=== PATIENT | female | born 1970 | race American Indian/Alaskan Native ===

== ENCOUNTER 2017-11-14 13:45 | Inpatient (IN) | payer SELFPAY ==
[2017-11-14] MEDS ORDERED: ASPIRIN PO ONE (13:52)
[2017-11-14] MEDS ORDERED: CATAPRES PO ONE (14:01)
[2017-11-14 14:23] LABS: Basophils # (Auto) 0.1 K/mm3 (0.0-0.1); Basophils % (Auto) 0.8 % (0.0-1.8); Eosinophils # (Auto) 0.2 K/mm3 (0.0-0.4); Eosinophils % (Auto) 2.7 % (0.0-4.3); Hematocrit 39.2 % (30.3-42.9); Hemoglobin 12.2 gm/dl (10.1-14.3); Lymphocytes # (Auto) 2.2 K/mm3 (1.2-5.4); Lymphocytes % (Auto) 31.8 % (13.4-35.0); Mean Corpuscular HGB Conc 31 % (30-34); Mean Corpuscular Volume 72 fl (79-97); Monocytes # (Auto) 0.4 K/mm3 (0.0-0.8); Platelet Count 278 K/mm3 (140-440); Red Blood Count 5.46 M/mm3 (3.65-5.03); Red Cell Distribution Width 19.4 % (13.2-15.2)
[2017-11-14 14:25] LABS: Mean Corpuscular Hemoglobin 22 pg (28-32)
[2017-11-14 14:32] LABS: BUN/Creatinine Ratio 11; Blood Urea Nitrogen 11 mg/dL (7-17); Calcium 9.4 mg/dL (8.4-10.2); Hemolysis Index 45
[2017-11-14] MEDS ORDERED: NITRO-BID 2% TP ONE (16:36)
--- NOTE | 2017-11-14 16:36 | Emergency Department Report ---
ED Chest Pain HPI - General Chief Complaint: Chest Pain Stated Complaint: CP SOB Time Seen by Provider: 11/14/17 16:22 Source: patient Mode of arrival: Ambulatory Limitations: No Limitations - History of Present Illness Initial Comments: Patient is a 47-year-old [place] female who is presenting with chest pain for the last 5 days. Patient states as a heaviness sensation with shortness of breath. Patient states is worse with exertion and better with rest and nitroglycerin. Patient states she's used all of her old bottle of nitroglycerin this week. Patient states she had angioplasty and 2016 was not sure if she has any stents. Patient states she also has had some episodes of diaphoresis as well. Patient denies nausea vomiting diarrhea or cough at this time. MD Complaint: chest pain - Related Data Home Medications Medication Instructions Recorded Confirmed Last Taken Ranitidine HCl [Zantac 300 MG TAB] 150 mg PO BID 05/02/14 05/29/16 05/29/16 Hydrochlorothiazide [HCTZ] 25 mg PO DAILY 12/06/15 05/29/16 05/29/16 diphenhydrAMINE [Benadryl CAP] 25 mg PO Q6HR PRN 12/06/15 05/29/16 05/29/16 levETIRAcetam [Keppra TAB] 1,000 mg PO BID 12/06/15 05/29/16 05/29/16 Divalproex Sodium [Divalproex 250 mg PO BID 05/29/16 05/29/16 05/29/16 Sodium ER] Gabapentin [Neurontin] 300 mg PO Q8HR 05/29/16 05/29/16 05/29/16 HYDROcodone/APAP 5-325 [[place] 1 each PO Q6HR PRN 05/29/16 05/29/16 05/29/16 5-325 mg TAB] Multivit-Min36/Iron/Folic Acid 1 each PO DAILY 05/29/16 05/29/16 05/29/16 [Geritol Complete Tablet] Previous Rx's Medication Instructions Recorded Last Taken Type AtorvaSTATin [Lipitor] 20 mg PO QHS #30 tablet 06/03/16 Unknown Rx Clopidogrel [Plavix] 75 mg PO QDAY #30 tablet 06/03/16 Unknown Rx ISOSORBIDE MONOnitrate [Imdur ER] 30 mg PO QDAY #30 tablet 06/03/16 Unknown Rx Lisinopril [Zestril TAB] 10 mg PO QDAY #30 tablet 06/03/16 Unknown Rx Metoprolol [Lopressor TAB] 50 mg PO BID #60 tablet 06/03/16 Unknown Rx Nitroglycerin [Nitrostat] 0.4 mg SL Q5M PRN #30 tab 06/03/16 Unknown Rx Allergies Allergy/AdvReac Type Severity Reaction Status Date / Time No Known Allergies Allergy Verified 05/31/14 21:52 Heart Score - HEART Score History: Highly suspicious EKG: Non-specific Age: 45-65 Risk factors: > 3 risk factors or hx of atherosclerotic disease Troponin: < normal limit HEART Score: 6 ED Review of Systems ROS: Stated complaint: CP, SOB Other details as noted in HPI Constitutional: denies: chills, fever Eyes: denies: eye pain, eye discharge, vision change ENT: denies: ear pain, throat pain Respiratory: denies: cough, shortness of breath, wheezing Cardiovascular: chest pain, dyspnea on exertion. denies: palpitations, orthopnea Endocrine: no symptoms reported Gastrointestinal: denies: abdominal pain, nausea, diarrhea Genitourinary: denies: urgency, dysuria, discharge Musculoskeletal: denies: back pain, joint swelling, arthralgia Skin: denies: rash, lesions Neurological: denies: headache, weakness, paresthesias Psychiatric: denies: anxiety, depression Hematological/Lymphatic: denies: easy bleeding, easy bruising ED Past Medical Hx - Past Medical History Hx Hypertension: Yes Hx Congestive Heart Failure: No Hx Diabetes: No Hx Deep Vein Thrombosis: No Hx Renal Disease: No Hx Sickle Cell Disease: No Hx Seizures: Yes Hx Asthma: No Hx COPD: No Hx HIV: No Additional medical history: MS - Surgical History Hx Pacemaker: No Hx Internal Defibrillator: No Hx Breast Surgery: Yes (biopies) Additional Surgical History: 05/03/2014. myomectomy. 2 breast biopsies - Social History Smoking Status: Unknown if ever smoked Substance Use Type: None - Medications Home Medications: Home Medications Medication Instructions Recorded Confirmed Last Taken Type Ranitidine HCl [Zantac 300 MG TAB] 150 mg PO BID 05/02/14 05/29/16 05/29/16 History Hydrochlorothiazide [HCTZ] 25 mg PO DAILY 12/06/15 05/29/16 05/29/16 History diphenhydrAMINE [Benadryl CAP] 25 mg PO Q6HR PRN 12/06/15 05/29/16 05/29/16 History levETIRAcetam [Keppra TAB] 1,000 mg PO BID 12/06/15 05/29/16 05/29/16 History Divalproex Sodium [Divalproex 250 mg PO BID 05/29/16 05/29/16 05/29/16 History Sodium ER] Gabapentin [Neurontin] 300 mg PO Q8HR 05/29/16 05/29/16 05/29/16 History HYDROcodone/APAP 5-325 [[place] 1 each PO Q6HR PRN 05/29/16 05/29/16 05/29/16 History 5-325 mg TAB] Multivit-Min36/Iron/Folic Acid 1 each PO DAILY 05/29/16 05/29/16 05/29/16 History [Geritol Complete Tablet] AtorvaSTATin [Lipitor] 20 mg PO QHS #30 tablet 06/03/16 Unknown Rx Clopidogrel [Plavix] 75 mg PO QDAY #30 tablet 06/03/16 Unknown Rx ISOSORBIDE MONOnitrate [Imdur ER] 30 mg PO QDAY #30 tablet 06/03/16 Unknown Rx Lisinopril [Zestril TAB] 10 mg PO QDAY #30 tablet 06/03/16 Unknown Rx Metoprolol [Lopressor TAB] 50 mg PO BID #60 tablet 06/03/16 Unknown Rx Nitroglycerin [Nitrostat] 0.4 mg SL Q5M PRN #30 tab 06/03/16 Unknown Rx ED Physical Exam - General Limitations: No Limitations General appearance: alert, in no apparent distress - Head Head exam: Present: atraumatic, normocephalic - Eye Eye exam: Present: normal appearance - ENT ENT exam: Present: mucous membranes moist - Neck Neck exam: Present: normal inspection - Respiratory Respiratory exam: Present: normal lung sounds bilaterally. Absent: respiratory distress - Cardiovascular Cardiovascular Exam: Present: regular rate, normal rhythm. Absent: systolic murmur, diastolic murmur, rubs, gallop - GI/Abdominal GI/Abdominal exam: Present: soft, normal bowel sounds - Extremities Exam Extremities exam: Present: normal inspection - Back Exam Back exam: Present: normal inspection - Neurological Exam Neurological exam: Present: alert, oriented X3 - Psychiatric Psychiatric exam: Present: normal affect, normal mood - Skin Skin exam: Present: warm, dry, intact, normal color. Absent: rash ED Course Vital Signs 11/14/17 11/14/17 11/14/17 13:49 15:12 16:44 Temperature 97.6 F Pulse Rate 91 H Blood Pressure 214/129 153/96 Blood Pressure 166/103 [Left] O2 Sat by Pulse 100 Oximetry 11/14/17 11/14/17 11/14/17 16:45 16:47 16:48 Temperature Pulse Rate 70 72 71 Blood Pressure 157/94 Blood Pressure [Left] O2 Sat by Pulse 97 95 98 Oximetry 11/14/17 11/14/17 17:02 17:15 Temperature Pulse Rate 72 86 Blood Pressure 154/92 136/84 Blood Pressure [Left] O2 Sat by Pulse 100 Oximetry ROSALIND score - Rosalind Score Age > 65: (0) No Aspirin use within the Past 7 Days: (1) Yes 3 or more CAD Risk Factors: (1) Yes 2 or more Angina events in past 24 hrs: (1) Yes Known CAD with more than 50% Stenosis: (1) Yes Elevated Cardiac Markers: (0) No ST Deviation Greater than 0.5mm: (0) No ROSALIND Score: 4 ED Medical Decision Making - Lab Data Result diagrams: 11/14/17 13:57 11/14/17 13:57 - EKG Data -: EKG Interpreted by Me - EKG Data Interpretation: other (EKG shows sinus rhythm at a rate of 91 axes normal intervals and normal is no ST segment elevations or depressions there are Q waves present in V1 through V4 consistent with old anterior infarct, interpretation is 1353) - Radiology Data Radiology results: image reviewed interpreted by me: No acute process - Medical Decision Making Patient with unstable angina type symptoms patient will be admitted to Dr. Witt at this time we'll consult cardiology Critical Care Time: Yes Critical care time in (mins) excluding proc time.: 30 Critical care attestation.: If time is entered above; I have spent that time in minutes in the direct care of this critically ill patient, excluding procedure time. ED Disposition Clinical Impression: Unstable angina Disposition: OP ADMIT IP TO THIS HOSP Is pt being admited?: Yes Does the pt Need Aspirin: No Condition: Stable Instructions: Angina (ED) Referrals: BUD DOVER MD [Primary Care Provider] - 3-5 Days
--- NOTE | 2017-11-14 20:19 | XRay Report ---
FINAL REPORT PROCEDURE: XR CHEST ROUTINE 2V TECHNIQUE: PA and lateral chest radiographs were obtained. CPT 97861 HISTORY: cough COMPARISON: No prior studies are available for comparison. FINDINGS: Heart: There is mild cardiomegaly. Mediastinum/Vessels: Mild degree pulmonary venous congestion is noted. Lungs/Pleural space: Normal. Bony thorax: No acute osseous abnormality. Other: IMPRESSION: Mild cardiomegaly with mild pulmonary venous congestion.
--- NOTE | 2017-11-14 22:44 | Event Note ---
Date: 11/14/17 See dictated H/p in reports Unstable Angina HTN Seizure disorder CAD
[2017-11-14] MEDS ORDERED: PERCOCET 5/325 PO PRN (22:45)
[2017-11-14] MEDS ORDERED: MILK OF MAGNESIA PO PRN (22:45)
[2017-11-14] MEDS ORDERED: AMBIEN PO PRN (22:45)
[2017-11-14] MEDS ORDERED: DULCOLAX PR PRN (22:45)
[2017-11-14] MEDS ORDERED: ZOFRAN IV PRN (22:45)
[2017-11-14] MEDS ORDERED: TYLENOL PO PRN (22:45)
[2017-11-14] MEDS ORDERED: BENADRYL PO PRN (22:50)
[2017-11-14] MEDS ORDERED: NON-FORMULARY (Levetiracetam [Keppra Tab] 1,000 MG) PO SCH (23:00)
[2017-11-14] MEDS: MORPHINE IV PRN (23:02)
[2017-11-14] MEDS: LOPRESSOR PO SCH (23:58)
[2017-11-15] MEDS ORDERED: NEURONTIN ONE (00:03)
[2017-11-15] MEDS ORDERED: KEPPRA PO ONE (00:03)
[2017-11-15] MEDS ORDERED: PEPCID IV ONE (00:03)
[2017-11-15] MEDS: KEPPRA PO SCH ×3 (00:10→22:49)
[2017-11-15] MEDS: NEURONTIN PO SCH ×4 (00:11→22:50)
[2017-11-15] MEDS: PEPCID IV SCH ×3 (00:11→22:49)
[2017-11-15] MEDS: MORPHINE IV PRN (04:12)
[2017-11-15 05:02] LABS: Basophils # (Auto) 0.1 K/mm3 (0.0-0.1); Basophils % (Auto) 0.8 % (0.0-1.8); Eosinophils # (Auto) 0.2 K/mm3 (0.0-0.4); Eosinophils % (Auto) 2.4 % (0.0-4.3); Hematocrit 37.1 % (30.3-42.9); Hemoglobin 11.6 gm/dl (10.1-14.3); Lymphocytes # (Auto) 2.2 K/mm3 (1.2-5.4); Lymphocytes % (Auto) 33.5 % (13.4-35.0); Mean Corpuscular HGB Conc 31 % (30-34); Mean Corpuscular Volume 71 fl (79-97); Monocytes # (Auto) 0.4 K/mm3 (0.0-0.8); Monocytes % (Auto) 5.7 % (0.0-7.3); Platelet Count 258 K/mm3 (140-440); Red Blood Count 5.19 M/mm3 (3.65-5.03); Red Cell Distribution Width 18.9 % (13.2-15.2)
[2017-11-15 05:10] LABS: Mean Corpuscular Hemoglobin 22 pg (28-32)
[2017-11-15 05:28] LABS: Alanine Aminotransferase 9 units/L (7-56); Albumin 3.7 g/dL (3.9-5); BUN/Creatinine Ratio 12; Blood Urea Nitrogen 11 mg/dL (7-17); Calcium 9.1 mg/dL (8.4-10.2); Hemolysis Index 4
[2017-11-15] MEDS ORDERED: LEXISCAN IV ONE ×2 (08:15→08:22)
--- NOTE | 2017-11-15 09:18 | Progress Note ---
Assessment and Plan - Atypical chest pain possibly from acute coronary syndrome Continuous oxygen, nitroglycerin, aspirin, morphine, beta ira, statin. Set cardiac enzymes 3 negative. Stress thallium. - HTN Optimize blood pressure control lisinopril and beta blockers. - Seizure disorder Continue assessing her medications - CAD Continue with aspirin, metoprolol, lisinopril, atorvastatin. -Prophylaxis with Lovenox and GI prophylaxis with Pepcid Subjective Date of service: 11/15/17 Principal diagnosis: Chest pain Interval history: No more chest pain or shortness of breath Objective - Exam Narrative Exam: Constitutional: Well-nourished well-developed. In no distress Head: Normocephalic atraumatic Eyes: Pupils are equal round and reactive to light Nose: No enlarged turbinates, no septal deviation. Mouth: Moist mucous membranes. Neck: Supple no thyromegaly. No bruit. No JVD Heart: Regular rate and rhythm, S1-S2 abnormal. No rubs murmurs or gallop Lungs: Clear to auscultation bilaterally no rales or rhonchi Abdomen: Soft, nontender. Bowel sound are present. Extremities: No edema no cyanosis and no clubbing. Neuro: Alert oriented Oriented x3. No focal sensory or motor deficit. Skin: No rashes no hyperemic spots Psychiatry: Euthymic. Calm. - Constitutional Vitals: Vital Signs - 12hr 11/14/17 11/14/17 11/14/17 21:30 21:45 22:00 Temperature Pulse Rate 70 80 77 Pulse Rate [ Left Radial] Respiratory 18 17 12 Rate Respiratory Rate [Leg] Blood Pressure 141/82 136/84 133/83 Blood Pressure [Left] O2 Sat by Pulse Oximetry 11/14/17 11/14/17 11/14/17 22:15 22:30 22:45 Temperature Pulse Rate 81 78 78 Pulse Rate [ Left Radial] Respiratory 17 16 17 Rate Respiratory Rate [Leg] Blood Pressure 139/87 139/88 136/80 Blood Pressure [Left] O2 Sat by Pulse Oximetry 11/14/17 11/14/17 11/14/17 23:00 23:02 23:15 Temperature Pulse Rate 88 80 Pulse Rate [ Left Radial] Respiratory 14 18 16 Rate Respiratory Rate [Leg] Blood Pressure 131/74 132/75 Blood Pressure [Left] O2 Sat by Pulse Oximetry 11/14/17 11/14/17 11/14/17 23:30 23:51 23:58 Temperature Pulse Rate 81 85 83 Pulse Rate [ Left Radial] Respiratory 16 16 Rate Respiratory Rate [Leg] Blood Pressure 125/78 141/84 125/78 Blood Pressure [Left] O2 Sat by Pulse Oximetry 11/15/17 11/15/17 11/15/17 00:01 00:12 01:03 Temperature 97.6 F Pulse Rate 73 83 73 Pulse Rate [ Left Radial] Respiratory 18 15 Rate Respiratory Rate [Leg] Blood Pressure 145/87 Blood Pressure 145/87 [Left] O2 Sat by Pulse 98 Oximetry 11/15/17 11/15/17 11/15/17 01:12 03:09 03:41 Temperature Pulse Rate 71 Pulse Rate [ 75 Left Radial] Respiratory 18 Rate Respiratory 18 Rate [Leg] Blood Pressure Blood Pressure [Left] O2 Sat by Pulse Oximetry 11/15/17 11/15/17 11/15/17 04:12 04:42 05:02 Temperature 98.9 F Pulse Rate 73 Pulse Rate [ Left Radial] Respiratory 18 18 18 Rate Respiratory Rate [Leg] Blood Pressure Blood Pressure 133/72 [Left] O2 Sat by Pulse 100 Oximetry General appearance: Present: no acute distress, well-nourished - EENT Eyes: PERRL, EOM intact ENT: clear oral mucosa - Neck Neck: supple, normal ROM - Respiratory Respiratory effort: normal Respiratory: bilateral: CTA - Breasts Breasts: normal - Cardiovascular Rhythm: regular Heart Sounds: Present: S1 & S2. Absent: gallop, rub Extremities: pulses intact, No edema, normal color, Full ROM - Gastrointestinal General gastrointestinal: Present: soft, non-tender, non-distended, normal bowel sounds - Genitourinary Female genitourinary: normal - Integumentary Integumentary: clear, warm, dry - Musculoskeletal Musculoskeletal: 1, strength equal bilaterally - Neurologic Neurologic: moves all extremities - Psychiatric Psychiatric: memory intact, appropriate mood/affect, intact judgment & insight - Labs CBC & Chem 7: 11/15/17 04:23 11/15/17 04:23 Labs: Abnormal lab results 11/14/17 11/15/17 11/15/17 Range/Units 13:57 04:23 04:23 RBC 5.46 H 5.19 H (3.65-5.03) M/mm3 MCV 72 L 71 L (79-97) fl MCH 22 L 22 L (28-32) pg RDW 19.4 H 18.9 H (13.2-15.2) % Albumin 3.7 L (3.9-5) g/dL
[2017-11-15] MEDS: ZESTRIL PO SCH (12:26)
[2017-11-15] MEDS: PLAVIX PO SCH (12:27)
[2017-11-15] MEDS: IMDUR PO SCH (12:27)
[2017-11-15] MEDS: HCTZ PO SCH (12:28)
[2017-11-15] MEDS: LOVENOX SUB-Q SCH (12:28)
[2017-11-15] MEDS: NORCO 5/325 PO PRN (12:28)
[2017-11-15] MEDS: LOPRESSOR PO SCH ×2 (12:32→22:50)
[2017-11-15] MEDS: NITROSTAT SL PRN ×2 (12:32→21:02)
[2017-11-16] MEDS: NEURONTIN PO SCH ×3 (06:57→22:55)
--- NOTE | 2017-11-16 07:37 | Treadmill Report ---
THALLIUM STRESS TEST LEFT VENTRICLE: Left ventricular chamber size is within normal spread. Perfusion study demonstrates a small fixed inferoapical defect, no significant reversibility on the resting study. Gated analysis demonstrates normal left ventricular systolic function, ejection fraction of 50%. CONCLUSION: Small fixed inferoapical defect may represent breast attenuation artifact, cannot exclude a small prior inferior apical infarct. There is no reversible ischemia demonstrated on this study. Recommend clinical correlation. [facility]# [id number] [place]/NTS
[2017-11-16] MEDS: NITROSTAT SL PRN ×3 (10:41→10:51)
--- NOTE | 2017-11-16 11:57 | Progress Note ---
Assessment and Plan - Atypical chest pain possibly from acute coronary syndrome Continuous oxygen, nitroglycerin, aspirin, morphine, beta ira, statin. cardiac enzymes 3 negative. EKG was benign Stress thallium showed fixed defect. - HTN Optimize blood pressure control lisinopril and beta blockers. - Seizure disorder Continue assessing her medications - CAD Continue with aspirin, metoprolol, lisinopril, atorvastatin. -Prophylaxis with Lovenox and GI prophylaxis with Pepcid Disposition: Commence medical management and d/c home tomorrow Subjective Date of service: 11/16/17 Principal diagnosis: Chest pain Interval history: Still having chest pain. No more chest pain or shortness of breath Objective - Exam Narrative Exam: Constitutional: Well-nourished well-developed. In no distress Head: Normocephalic atraumatic Eyes: Pupils are equal round and reactive to light Nose: No enlarged turbinates, no septal deviation. Mouth: Moist mucous membranes. Neck: Supple no thyromegaly. No bruit. No JVD Heart: Regular rate and rhythm, S1-S2 abnormal. No rubs murmurs or gallop Lungs: Clear to auscultation bilaterally no rales or rhonchi Abdomen: Soft, nontender. Bowel sound are present. Extremities: No edema no cyanosis and no clubbing. Neuro: Alert oriented Oriented x3. No focal sensory or motor deficit. Skin: No rashes no hyperemic spots Psychiatry: Euthymic. Calm. - Constitutional Vitals: Vital Signs - 12hr 11/16/17 11/16/17 11/16/17 01:07 05:43 06:00 Temperature 97.7 F 98.1 F Pulse Rate 65 66 64 Respiratory 20 20 Rate Blood Pressure 113/62 124/78 O2 Sat by Pulse 100 99 Oximetry 11/16/17 11/16/17 11/16/17 10:41 10:46 10:51 Temperature Pulse Rate 67 67 69 Respiratory Rate Blood Pressure 128/79 137/85 117/80 O2 Sat by Pulse Oximetry - Labs CBC & Chem 7: 11/15/17 04:23 11/15/17 04:23
[2017-11-16] MEDS: IMDUR PO SCH (12:08)
[2017-11-16] MEDS: PLAVIX PO SCH (12:09)
[2017-11-16] MEDS: LOVENOX SUB-Q SCH (12:09)
[2017-11-16] MEDS: KEPPRA PO SCH ×2 (12:09→22:55)
[2017-11-16] MEDS: HCTZ PO SCH (12:10)
[2017-11-16] MEDS: ZESTRIL PO SCH (12:10)
[2017-11-16] MEDS: LOPRESSOR PO SCH ×2 (12:10→22:55)
[2017-11-16] MEDS: PEPCID PO SCH ×2 (12:23→22:55)
[2017-11-16] MEDS: NORCO 5/325 PO PRN (12:24)
--- NOTE | 2017-11-16 12:51 | Consultation ---
History of Present Illness Consult date: 11/16/17 Consult reason: chest pain History of present illness: The patient is a 47-year-old woman with coronary artery disease. A year and a half ago, she presented to this hospital with an acute ST elevation myocardial infarction of the inferior wall. Cardiac catheterization at a time demonstrated distal occlusion of the posterior descending branch of the right coronary artery. This small vessel occlusion was recommended for medical therapy. Otherwise, the rest of her coronary anatomy was angiographically normal. Left ventricular ejection fraction at that time was 35-40% by cardiac catheterization and 45-50% by echocardiogram. She presents to the hospital at this time with chest pain. She underwent a rule out CO protocol. The ECG was benign. Yesterday, she underwent a Persantine thallium stress test. This revealed a small fixed inferoapical defect with no reversible ischemia. This defect appears consistent with her prior inferoapical myocardial infarction which is managed medically. Past History Past Medical History: CAD Medications and Allergies Allergies Allergy/AdvReac Type Severity Reaction Status Date / Time No Known Allergies Allergy Verified 05/31/14 21:52 Home Medications Medication Instructions Recorded Confirmed Last Taken Type Ranitidine HCl [Zantac 300 MG TAB] 150 mg PO BID 05/02/14 05/29/16 05/29/16 History Hydrochlorothiazide [HCTZ] 25 mg PO DAILY 12/06/15 05/29/16 05/29/16 History diphenhydrAMINE [Benadryl CAP] 25 mg PO Q6HR PRN 12/06/15 05/29/16 05/29/16 History levETIRAcetam [Keppra TAB] 1,000 mg PO BID 12/06/15 05/29/16 05/29/16 History Divalproex Sodium [Divalproex 250 mg PO BID 05/29/16 05/29/16 05/29/16 History Sodium ER] Gabapentin [Neurontin] 300 mg PO Q8HR 05/29/16 05/29/16 05/29/16 History HYDROcodone/APAP 5-325 [[place] 1 each PO Q6HR PRN 05/29/16 05/29/16 05/29/16 History 5-325 mg TAB] Multivit-Min36/Iron/Folic Acid 1 each PO DAILY 05/29/16 05/29/16 05/29/16 History [Geritol Complete Tablet] AtorvaSTATin [Lipitor] 20 mg PO QHS #30 tablet 06/03/16 Unknown Rx Clopidogrel [Plavix] 75 mg PO QDAY #30 tablet 06/03/16 Unknown Rx ISOSORBIDE MONOnitrate [Imdur ER] 30 mg PO QDAY #30 tablet 06/03/16 Unknown Rx Lisinopril [Zestril TAB] 10 mg PO QDAY #30 tablet 06/03/16 Unknown Rx Metoprolol [Lopressor TAB] 50 mg PO BID #60 tablet 06/03/16 Unknown Rx Nitroglycerin [Nitrostat] 0.4 mg SL Q5M PRN #30 tab 06/03/16 Unknown Rx Active Meds: Active Medications Acetaminophen (Tylenol) 650 mg PO Q4H PRN PRN Reason: Pain MILD(1-3)/Fever >100.5/PERALTA Last Admin: 11/15/17 20:58 Dose: 650 mg Acetaminophen/Hydrocodone Bitart ([place] 5/325) 1 each PO Q6HR PRN PRN Reason: Pain Last Admin: 11/16/17 12:24 Dose: 1 each Atorvastatin Calcium (Lipitor) 20 mg PO QHS [facility] Last Admin: 11/15/17 22:49 Dose: 20 mg Bisacodyl (Dulcolax) 10 mg MD QDAY PRN PRN Reason: Constipation unrelieved by MOM Clopidogrel Bisulfate (Plavix) 75 mg PO QDAY [facility] Last Admin: 11/16/17 12:09 Dose: 75 mg Diphenhydramine HCl (Benadryl) 25 mg PO Q6HR PRN PRN Reason: Itching Divalproex Sodium (Depakote Er) 250 mg PO BID [facility] Last Admin: 11/15/17 22:50 Dose: 250 mg Enoxaparin Sodium (Lovenox) 40 mg SUB-Q QDAY [facility] Last Admin: 11/16/17 12:09 Dose: 40 mg Famotidine (Pepcid) 20 mg PO BID [facility] Last Admin: 11/16/17 12:23 Dose: 20 mg Gabapentin (Neurontin) 300 mg PO Q8HR [facility] Last Admin: 11/16/17 06:57 Dose: 300 mg Hydrochlorothiazide (Hctz) 25 mg PO DAILY [facility] Last Admin: 11/16/17 12:10 Dose: 25 mg Isosorbide Mononitrate (Imdur) 30 mg PO QDAY [facility] Last Admin: 11/16/17 12:08 Dose: 30 mg Levetiracetam (Keppra) 1,000 mg PO BID [facility] Last Admin: 11/16/17 12:09 Dose: 1,000 mg Lisinopril (Zestril) 10 mg PO QDAY [facility] Last Admin: 11/16/17 12:10 Dose: 10 mg Magnesium Hydroxide (Milk Of Magnesia) 30 ml PO Q4H PRN PRN Reason: Constipation Metoprolol Tartrate (Lopressor) 50 mg PO BID [facility] Last Admin: 11/16/17 12:10 Dose: 50 mg Morphine Sulfate (Morphine) 4 mg IV Q4H PRN PRN Reason: Pain , Severe (7-10) Last Admin: 11/15/17 04:12 Dose: 4 mg Nitroglycerin (Nitrostat) 0.4 mg SL Q5M PRN PRN Reason: Chest Pain Last Admin: 11/16/17 10:51 Dose: 0.4 mg Ondansetron HCl (Zofran) 4 mg IV Q8H PRN PRN Reason: N/V unrelieved by Reglan Oxycodone/Acetaminophen (Percocet 5/325) 1 tab PO Q6H PRN PRN Reason: Pain, Moderate (4-6) Zolpidem Tartrate (Ambien) 5 mg PO QHS PRN PRN Reason: Insomnia Review of Systems Cardiovascular: chest pain, shortness of breath, no orthopnea, no palpitations, no rapid/irregular heart beat, no edema, no syncope, no lightheadedness Physical Examination Vital Signs Temp Pulse BP Pulse Ox 97.6 F 91 H 214/129 100 11/14/17 13:49 11/14/17 13:49 11/14/17 13:49 11/14/17 13:49 General appearance: no acute distress HEENT: Positive: PERRL Neck: Positive: neck supple Cardiac: Positive: Reg Rate and Rhythm Lungs: Positive: Decreased Breath Sounds Neuro: Positive: Grossly Intact Abdomen: Positive: Soft Female genitourinary: deferred Skin: Positive: Clear Extremities: Absent: edema Results 11/15/17 04:23 11/15/17 04:23 EKG interpretations - Telemetry EKG Rhythm: Sinus Rhythm Assessment and Plan - Patient Problems (1) Chest pain Current Visit: Yes Status: Acute Plan to address problem: Patient has angina and chest pain, positive thallium stress test demonstrating a fixed defect stent without prior small vessel distal inferior CO. We will continue aggressive medical therapy for small vessel disease and angina pectoris. Long-acting nitrates and Ranexa will be added to her regimen.
[2017-11-16] MEDS ORDERED: IMDUR PO SCH (13:00)
[2017-11-16] MEDS: PEPCID IV SCH (13:42)
[2017-11-16] MEDS: RANEXA ER PO SCH ×2 (14:19→22:55)
[2017-11-16] MEDS ORDERED: IMDUR PO ONE (15:00)
[2017-11-17] MEDS: NEURONTIN PO SCH (06:50)
--- NOTE | 2017-11-17 08:15 | History and Physical Report ---
CHIEF COMPLAINT: Left-sided chest pain previous history of hypertension peripheral neuropathy, hyperlipidemia, hypertension, comes in for left-sided chest pain . Worse with exertion. Relieved by nitroglycerin. The patient apparently had CAT scan in 2015, but . Chest pain associated with diaphoresis sometimes. Occasional palpitations. No . No shortness of breath. . The pain is about 6 on a scale of 1-10. Dull pain. . PAST MEDICAL HISTORY: As mentioned . Peripheral vascular neuropathy, hypertension, coronary artery disease. CURRENT MEDICATIONS: . Home medications are Keppra 1000 mg b.i.d. , lisinopril 10 mg p.o. daily, metoprolol 50 mg p.o. b.i.d. PAST SURGICAL HISTORY: Breast biopsies. 2013 myomectomy. . SOCIAL HISTORY: Does not smoke. No alcohol, no recreational drugs. FAMILY HISTORY: . REVIEW OF SYSTEMS: Significant for left-sided chest pain and diaphoresis . No shortness of breath. No palpitations. Otherwise, a 14-point review of systems negative. PHYSICAL EXAMINATION: GENERAL: Middle-aged female, cooperative during examination. VITAL SIGNS: Blood pressure is 133/72, temperature is 98.9, pulse is 75, respiratory rate is 18. HEENT: Unremarkable. Pupils equal and reactive. NECK: Supple, no lymphadenopathy, no thyromegaly. LUNGS: Clear to auscultation and percussion. Good air entry. CARDIOVASCULAR: S1, S2 heard. No gallop, no murmur, no rub. Apical impulse in left fifth intercostal space in midclavicular line. ABDOMEN: Soft and benign. No hepatosplenomegaly, no guarding, no rigidity. Hernial orifices are normal. EXTREMITIES: Good pedal pulses. No pedal edema. CENTRAL NERVOUS SYSTEM: Alert and oriented x 4, nonfocal exam. SKIN: Normal. LABORATORY DATA: Significant for white count of 6800, hemoglobin of 12.2, hematocrit of 39.2, platelet count is 278,000. Electrolytes are normal. Troponin is less than 0.010. EKG shows sinus rhythm with a heart rate of 91, normal axis, no ST segment elevations or depressions. old anterior infarct. Chest x-ray: No acute process. ASSESSMENT AND PLAN: 1. Unstable angina, in view being precipitated by exertion and relieved with nitroglycerin . Cardiology consulted. Serial troponins. Lexiscan in the morning. The patient may go for cath depending on the Cardiology consult. 2. Hypertension. Continue hydrochlorothiazide and lisinopril. Isosorbide dinitrate and metoprolol 50 mg b.i.d. 3. Gastroesophageal reflux disease. Continue ranitidine 150 mg b.i.d. 4. Seizure disorder. Continue Keppra 1000 mg twice a day. Also, Depakote 250 mg twice a day. 5. Hyperlipidemia. Continue Lipitor 20 mg p.o. daily. 6. Coronary artery disease. Continue Plavix and Imdur. 7. Deep venous thrombosis prophylaxis, Lovenox. The patient on heparin drip. JOB# [id number] [facility]/NTS
[2017-11-17] MEDS ORDERED: IMDUR PO SCH (10:00)
[2017-11-17] MEDS: HCTZ PO SCH (10:55)
[2017-11-17] MEDS: LOVENOX SUB-Q SCH (10:56)
[2017-11-17] MEDS: LOPRESSOR PO SCH (10:56)
[2017-11-17] MEDS: KEPPRA PO SCH (10:56)
[2017-11-17] MEDS: RANEXA ER PO SCH (10:57)
[2017-11-17] MEDS: ZESTRIL PO SCH (10:57)
[2017-11-17] MEDS: PEPCID PO SCH (10:57)
[2017-11-17] MEDS: PLAVIX PO SCH (10:57)
[2017-11-17] MEDS: NORCO 5/325 PO PRN (11:08)
--- NOTE | 2017-11-17 12:23 | Progress Note ---
Assessment and Plan Chest pain no reversible ischemia on MPI this admission Hx of CAD [facility] 04/2016 demonstrated distal occlusion of the posterior descending branch of the right coronary artery. This small vessel occlusion was recommended for medical therapy. Otherwise, the rest of her coronary anatomy was angiographically normal. EF 45-50% by echocardiogram 05/2016. Tobacco abuse Recommendations: No further cardiac workup indicated. Continue medical therapy for small vessel coronary disease. Stable for discharge home today. Subjective Date of service: 11/17/17 Principal diagnosis: Chest pain Interval history: Patient complains of headaches and shortness of breath with minimal exertion. She denies chest pain. Objective Vital Signs Temp Pulse Resp Resp BP BP Pulse Ox 11/17/17 07:36 97.7 F 68 20 104/63 97 11/17/17 06:00 65 11/17/17 05:38 98.1 F 11/17/17 05:23 65 100 11/17/17 05:22 122.0 F H 64 20 99/64 100 11/17/17 01:45 97.8 F 68 17 136/75 100 11/17/17 00:26 68 136/75 100 11/16/17 22:55 68 113/67 11/16/17 22:00 67 20 98 11/16/17 20:39 97.9 F 68 20 113/67 96 11/16/17 17:50 97.7 F 67 16 111/66 100 11/16/17 14:16 64 122/69 11/16/17 13:24 20 11/16/17 12:24 20 20 - Physical Examination General: No Apparent Distress HEENT: Positive: PERRL Neck: Positive: trachea midline Cardiac: Positive: Reg Rate and Rhythm Lungs: Positive: Decreased Breath Sounds Neuro: Positive: Grossly Intact Extremities: Absent: edema
--- NOTE | 2017-11-17 13:37 | Discharge Summary ---
Providers - Providers Date of Admission: 11/14/17 22:45 Attending physician: WALTER VAN MD 11/14/17 22:45 Consult to Physician [CONS] Routine Consulting Provider: KARLA RIVERA Reason For Exam: Unstable angina Place consult to:: Lauri Notified:: yes Phone number called:: [phone] If yes, spoke with:: Lindsay Time called:: 15:05 Primary care physician: BUD DOVER Hospitalization Condition: Stable Hospital course: No driving till cleared by neurologist must quit tobacco MS seizure Disposition: DC-01 TO HOME OR SELFCARE Time spent for discharge: 35 mins Core Measure Documentation - Palliative Care Palliative Care/ Comfort Measures: Not Applicable - Core Measures Any of the following diagnoses?: none - VTE Discharge Requirements Deep Vein Thrombosis/Pulmonary Embolism Present on Admission: No Exam - Constitutional Vitals: Temp Pulse Resp BP Pulse Ox 97.7 F 69 20 104/63 97 11/17/17 07:36 11/17/17 12:46 11/17/17 07:36 11/17/17 07:36 11/17/17 07:36 Plan Activity: no driving until cleared by PCP, fall precautions Diet: low fat, low cholesterol Special Instructions: record daily weights, record daily BP diary, smoking cessation Follow up with: BUD DOVER MD [Primary Care Provider] - 3-5 Days [facility] [Outside] - 7 Days Prescriptions: AtorvaSTATin [Lipitor] 20 mg PO QHS #30 tablet Clopidogrel [Plavix] 75 mg PO QDAY #30 tablet diphenhydrAMINE [Benadryl CAP] 25 mg PO Q6HR PRN #10 capsule PRN Reason: Itching Divalproex Sodium [Divalproex Sodium ER] 250 mg PO BID #60 tab.er.24h Gabapentin [Neurontin] 300 mg PO Q8HR #60 capsule Hydrochlorothiazide [HCTZ] 25 mg PO DAILY #30 tablet ISOSORBIDE MONOnitrate [Imdur ER] 30 mg PO QDAY #30 tablet ISOSORBIDE MONOnitrate [Imdur ER] 60 mg PO QDAY #30 tablet levETIRAcetam [Keppra TAB] 1,000 mg PO BID #30 tablet Lisinopril [Zestril TAB] 10 mg PO QDAY #30 tablet Metoprolol [Lopressor TAB] 50 mg PO BID #60 tablet Nitroglycerin [Nitrostat] 0.4 mg SL Q5M PRN #30 tablet PRN Reason: Chest Pain Ranitidine HCl [Zantac 300 MG TAB] 150 mg PO BID #30 tablet Ranolazine ER [Ranexa ER] 500 mg PO BID #60 tablet
[2017-11-17 15:36] VITALS: BP 126/73
== END 2017-11-17 15:46 | disposition home or self-care (01) | DRG 303 ==
LOC: ED 13:45 → 4A 22:45
PROVIDERS: ADMIT Internal Medicine; ATTEND Internal Medicine
DX: I25.110 Atherosclerotic heart disease of native coronary artery with unstable angina pectoris (principal); I10 Essential (primary) hypertension; G62.9 Polyneuropathy, unspecified; K21.9 Gastro-esophageal reflux disease without esophagitis; G40.909 Epilepsy, unspecified, not intractable, without status epilepticus; E78.5 Hyperlipidemia, unspecified
CPT/HCPCS: 36415; 71046; 78452; 80048; 80053; 83036; 84484; 85025; 93005; 93010; 93017; 96374; 99291; A9270-GY; A9502; J1650; J2270; J2785

== ENCOUNTER 2018-06-15 11:28 | Inpatient (IN) | payer SELFPAY ==
[2018-06-15] MEDS ORDERED: ATIVAN ONE (11:53)
[2018-06-15] MEDS ORDERED: KEPPRA 1,000 MG/NS 0.75% 100ML 1,000 MG/100 ML BAG IV ONE (11:57)
--- NOTE | 2018-06-15 11:58 | Emergency Department Report ---
HPI - General Chief Complaint: Headache Time Seen by Provider: 06/15/18 11:52 - HPI HPI: 47-year-old after a red female presents to the emergency department, dropped off by her , with complaint of a very severe headache. Shortly after presentation the patient had a seizure and has had 3 total seizures since that time. She presents to the main emergency department from triage post ictal. She is arousable and does complain of a headache but otherwise is confused and having trouble answering questions. When she does talk it is very slow and slightly slurred. She is moving all extremities at this time. In reviewing the patient's chart and previous records, she appears to have a history of hypertension, seizures, multiple sclerosis and coronary artery disease with a previous [place] in 2016. Patient appears to be on Plavix for the coronary artery disease and Depakote and Keppra for the seizures. Currently she is a poor historian. ED Past Medical Hx - Past Medical History Hx Hypertension: Yes Hx Congestive Heart Failure: No Hx Diabetes: No Hx Deep Vein Thrombosis: No Hx Renal Disease: No Hx Sickle Cell Disease: No Hx Seizures: Yes Hx Asthma: No Hx COPD: No Hx HIV: No Additional medical history: MS - Surgical History Hx Pacemaker: No Hx Internal Defibrillator: No Hx Breast Surgery: Yes (biopies) Additional Surgical History: 05/03/2014. myomectomy. 2 breast biopsies - Social History Smoking Status: Never Smoker Substance Use Type: None - Medications Home Medications: Home Medications Medication Instructions Recorded Confirmed Last Taken Type AtorvaSTATin [Lipitor] 20 mg PO QHS #30 tablet 11/17/17 06/15/18 06/14/18 Rx Clopidogrel [Plavix] 75 mg PO QDAY #30 tablet 11/17/17 06/15/18 06/14/18 Rx Gabapentin [Neurontin] 300 mg PO Q8HR #60 capsule 11/17/17 06/15/18 Unknown Rx ISOSORBIDE MONOnitrate [Imdur ER] 60 mg PO QDAY #30 tablet 11/17/17 06/15/18 Rx Metoprolol [Lopressor TAB] 50 mg PO BID #60 tablet 11/17/17 06/15/18 06/14/18 Rx Nitroglycerin [Nitrostat] 0.4 mg SL Q5M PRN #30 tablet 11/17/17 06/15/18 Unknown Rx hydroCHLOROthiazide [HCTZ] 25 mg PO DAILY #30 tablet 11/17/17 06/15/18 06/14/18 Rx levETIRAcetam [Keppra TAB] 1,000 mg PO BID #30 tablet 11/17/17 06/15/18 Rx raNITIdine HCl [Zantac 300 MG TAB] 150 mg PO BID #30 tablet 11/17/17 06/15/18 Rx diphenhydrAMINE [Benadryl CAP] 25 mg PO Q8H 06/15/18 06/15/18 06/15/18 History ED Review of Systems ROS: Stated complaint: HEADACHE/NUMBNESS RT ARM Other details as noted in HPI Comment: Unobtainable due to pts medical conditions Physical Exam - Physical Exam Vital Signs: Vital Signs 06/15/18 11:34 Temperature 98.9 F Pulse Rate 78 Respiratory 16 Rate Blood Pressure 152/93 O2 Sat by Pulse 98 Oximetry Physical Exam: GENERAL: The patient is well-developed well-nourished. HENT: Normocephalic. Atraumatic. Patient has moist mucous membranes. Oropharynx is clear. Patient is able to stick out tongue midline. No facial asymmetry. EYES: Extraocular motions are intact. Pupils equal reactive to light bilaterally. NECK: Supple. Trachea is midline. CHEST/LUNGS: Clear to auscultation. There is no respiratory distress noted. HEART/CARDIOVASCULAR: Regular. There is no tachycardia. There is no murmur. ABDOMEN: Abdomen is soft, nontender. Patient has normal bowel sounds. There is no abdominal distention. SKIN: Skin is warm and dry. NEURO: Patient appears very sleepy and/or postictal but is arousable. When answering questions patient has some slow stuttering/slurring speech. No pronator drift. Withdraws to painful stimuli. MUSCULOSKELETAL: There is no tenderness or deformity. There is no limitation range of motion. There is no evidence of acute injury. ED Course Vital Signs 06/15/18 11:34 Temperature 98.9 F Pulse Rate 78 Respiratory 16 Rate Blood Pressure 152/93 O2 Sat by Pulse 98 Oximetry - Consultations Consultation #1: The CT scan of the head without contrast was read by radiology as no acute process including no bleed, shift, ischemia. The telemedicine neurologist, Dr. Kaye, was contacted who agrees with that assessment of the CT scan and is currently on the monitor tech seeing the patient for evaluation. 06/15/18 12:27 06/15/18 12:49 Dr. Kaye saw the patient and will leave a note on the chart. He says that he has the patient had a stroke scale of 1 but agrees that the patient is not a TPA candidate for multiple reasons. The has now come bedside and says that the patient has been complaining of the headache and some episodes where she is staring off for the past few days. The says that the patient will have intermittent slurred speech. On top of all that the patient has a history of a retroperitoneal bleed. The telemedicine neurologist does not recommend CT angiography imaging of the head or neck at this time but does recommend admission for evaluation by a neurologist. ED Medical Decision Making - Lab Data Result diagrams: 06/15/18 11:51 06/15/18 11:51 - EKG Data -: EKG Interpreted by La EKG shows normal: sinus rhythm, axis, intervals, QRS complexes (Q waves to the anterior leads and inferiorly lead III), ST-T waves Rate: normal - EKG Data When compared to previous EKG there are: no significant change Interpretation: unchanged when compared t (11/16/17) - Radiology Data Radiology results: report reviewed CT HEAD WITHOUT CONTRAST: HISTORY: Neurological deficit. TECHNIQUE: Sequential 2.5mm CT images. COMPARISON: none. FINDINGS: Cerebral Parenchyma: Within normal limits. Cerebellum: Within normal limits. Brainstem: Within normal limits. Ventricles: Normal. Sella: Normal. Extra-axial spaces: Normal. Basal Cisterns: Normal. Intracranial Hemorrhage: None. Midline Shift: None. Calvarium: Normal. Sinuses: Normal. Mastoid Air Cells: Normal. Visualized Orbits: Normal. IMPRESSION: Cranial CT scan within normal limits. These findings were discussed with Dr. Vital on the emergency Department at 1206 hrs. Transcribed By: TTR Dictated By: ANURAG PHELPS JR, MD Electronically Authenticated By: ANURAG PHELPS JR, MD Signed Date/Time: 06/15/18 1208 - Medical Decision Making This patient originally came in for a headache that had a few different witnessed seizures through triage prior to coming back to the main emergency department. There she appeared postictal and therefore the NIH stroke scale was difficult to do. At first she seemed like a stroke scale of 8 but I was unable to complete the entire test appropriately. She had a stat CT scan of the head that did not show any bleed, shift, mass or any other acute process. At this point, the patient's came back to the hospital and was able to give further information. The patient does have a history of multiple sclerosis. This headache has been going on for many days and seems to wax and wane. She has also had some intermittent staring spells and the stuttering/ slurring speech also is something that is intermittent but chronic for this patient. The patient was seen by the telemedicine neurologist who got a NIH stroke scale of 1 but also agrees that the patient does not appear to be a TPA candidate for multiple reasons previously explained. He does recommend that the patient get admitted to the hospital for a neurology consultation. The rest the patient's labs were mostly unremarkable except for she is subtherapeutic on her Depakote. The patient was loaded with Keppra. The patient was accepted for admission by the hospitalist, Dr. Lee, who says he will pursue a neurology consultation. - Differential Diagnosis TIA, CVA, epilepsy, multiple sclerosis, hypoglycemia Critical Care Time: No Critical care attestation.: If time is entered above; I have spent that time in minutes in the direct care of this critically ill patient, excluding procedure time. ED Disposition Clinical Impression: Multiple sclerosis, Seizures Headache Qualifiers: Headache type: unspecified Headache chronicity pattern: unspecified pattern Intractability: intractable Qualified Code(s): R51 - Headache Disposition: OP ADMIT IP TO THIS HOSP Is pt being admited?: Yes Condition: Stable Time of Disposition: 13:59 - Assessment Assessment Interval: Baseline (Patient is post-ictal upon arrival to the Main ED from triage) - Level of Consciousness 1a. Level of Consciousness: resp stimuli/obtunded - LOC Questions 1b. LOC Questions: answers no questions correctly - LOC Command 1c. LOC Commands: performs tasks correctly - Best Gaze 2. Best Gaze: normal - Visual 3. Visual: no visual loss - Facial Palsy 4. Facial Palsy: normal symmetrical movement - Motor Arm 5b. Motor Arm Right: no drift 5a. Motor Arm Left: no drift - Motor Leg 6a. Motor Leg Left: no drift 6b. Motor Leg Right: no drift - Limb Ataxia 7. Limb Ataxia: absent - Sensory 8. Sensory: normal - Best Language 9. Best Language: severe aphasia - Dysarthria 10. Dysarthria: severe dysarthria - Extinction and Inattention 11. Extinction/Inattention: no abnormality (This NIHSS has been done as the patient is post-ictal after three witnessed seizures and is a difficult examination.) - Scoring Total Score: 8 Stroke Severity: Moderate Stroke
--- NOTE | 2018-06-15 12:08 | Cat Scan Report ---
CT HEAD WITHOUT CONTRAST: HISTORY: Neurological deficit. TECHNIQUE: Sequential 2.5mm CT images. COMPARISON: none. FINDINGS: Cerebral Parenchyma: Within normal limits. Cerebellum: Within normal limits. Brainstem: Within normal limits. Ventricles: Normal. Sella: Normal. Extra-axial spaces: Normal. Basal Cisterns: Normal. Intracranial Hemorrhage: None. Midline Shift: None. Calvarium: Normal. Sinuses: Normal. Mastoid Air Cells: Normal. Visualized Orbits: Normal. IMPRESSION: Cranial CT scan within normal limits. These findings were discussed with Dr. Vital on the emergency Department at 1206 hrs.
[2018-06-15 12:17] LABS: Basophils # (Auto) 0.1 K/mm3 (0.0-0.1); Basophils % (Auto) 1.9 % (0.0-1.8); Eosinophils # (Auto) 0.3 K/mm3 (0.0-0.4); Eosinophils % (Auto) 3.7 % (0.0-4.3); Hematocrit 44.5 % (30.3-42.9); Hemoglobin 14.5 gm/dl (10.1-14.3); Lymphocytes # (Auto) 2.1 K/mm3 (1.2-5.4); Lymphocytes % (Auto) 29.7 % (13.4-35.0); Mean Corpuscular HGB Conc 33 % (30-34); Mean Corpuscular Volume 80 fl (79-97); Monocytes # (Auto) 0.3 K/mm3 (0.0-0.8); Monocytes % (Auto) 4.5 % (0.0-7.3); Platelet Count 289 K/mm3 (140-440); Red Blood Count 5.58 M/mm3 (3.65-5.03); Red Cell Distribution Width 17.8 % (13.2-15.2)
[2018-06-15 12:18] LABS: Mean Corpuscular Hemoglobin 26 pg (28-32)
[2018-06-15 12:28] LABS: INR 0.88 (0.87-1.13); Partial Thromboplastin Time 27.6 Sec. (24.2-36.6)
[2018-06-15 12:33] LABS: BUN/Creatinine Ratio 10; Blood Urea Nitrogen 12 mg/dL (7-17); Calcium 9.8 mg/dL (8.4-10.2); Hemolysis Index 40
[2018-06-15 12:58] LABS: Alanine Aminotransferase 16 units/L (7-56); Albumin 4.1 g/dL (3.9-5)
[2018-06-15 13:01] LABS: Bilirubin,Direct < 0.2 mg/dL (0-0.2)
[2018-06-15] MEDS ORDERED: TYLENOL PO ONE (13:35)
[2018-06-15 16:25] LABS: Bilirubin,Urine NEG (Negative); Blood,Urine NEG (Negative); Color,Urine Straw (Yellow); Protein,Urine <15 mg/dL mg/dL (Negative); Urobilinogen,Urine < 2.0 mg/dL (<2.0)
[2018-06-15 16:28] LABS: WBC,Urine < 1.0 /HPF (0.0-6.0)
[2018-06-15 16:41] LABS: Amphetamine Screen,Urine PRESUMPTIVE NEGATIVE; Benzodiazepines Screen,Urine PRESUMPTIVE NEGATIVE; Cannabinoid Screen,Urine PRESUMPTIVE NEGATIVE; Cocaine Screen,Urine PRESUMPTIVE NEGATIVE; Methadone Screen,Urine PRESUMPTIVE NEGATIVE; Opiate Screen,Urine PRESUMPTIVE NEGATIVE
[2018-06-15] MEDS: FIORICET PO PRN (17:30)
[2018-06-15] MEDS: MORPHINE IV PRN (22:33)
--- NOTE | 2018-06-16 02:47 | Event Note ---
Date: 06/15/18 Please see dictated H/p in reports Seizure disorder Headache Hx of Multiple sclerosis
[2018-06-16] MEDS ORDERED: TYLENOL PO PRN (02:52)
[2018-06-16] MEDS ORDERED: SODIUM CHLORIDE FLUSH SYRINGE 10 ML IV PRN (02:52)
[2018-06-16] MEDS ORDERED: RANITIDINE HCL 150 MG PO SCH (03:00)
--- NOTE | 2018-06-16 03:17 | History and Physical Report ---
CHIEF COMPLAINT: 1. Headache. 2. Seizures. HISTORY OF PRESENT ILLNESS: A 47-year-old black female who comes to the ER for severe headache. In the ER, the patient had 3 witnessed seizures. The patient was postictal during my examination. The patient is arousable, but does complain of headache and also has trouble answering questions. She has slightly slurred speech. Moving all four extremities. The patient has history of multiple sclerosis, hypertension, seizures, coronary artery disease, and had OR in 2016. PAST MEDICAL HISTORY: Significant for hypertension, seizure disorder, coronary artery disease, and multiple sclerosis. PAST SURGICAL HISTORY: Breast surgery, biopsies, in 2013, and myomectomy. SOCIAL HISTORY: Does not smoke. No alcohol. FAMILY HISTORY: Significant for hypertension. CURRENT MEDICATIONS: Keppra 1000 mg b.i.d., ranitidine 150 mg b.i.d., metoprolol 50 mg twice a day, isosorbide mononitrate 60 mg once a day, Plavix 75 mg once a day, Lipitor 20 mg once a day. REVIEW OF SYSTEMS: Significant for seizures, headache, and numbness in the right arm, postictal after seizures. Otherwise, review of systems negative. PHYSICAL EXAMINATION: GENERAL: A middle-aged female, cooperative during examination. VITAL SIGNS: Blood pressure is 126/91, temperature is 97.8, pulse is 65, and respirations are 18. HEENT: Unremarkable. Pupils equal and reactive. NECK: Supple, no lymphadenopathy, no thyromegaly. LUNGS: Clear to auscultation and percussion. Good air entry. CARDIOVASCULAR: S1, S2 heard. No gallop, no murmur, no rub. Apical impulse in the left fifth intercostal space and midclavicular line. ABDOMEN: Soft and benign. No hepatosplenomegaly. No guarding, no rigidity. Hernial orifices are normal. EXTREMITIES: Good pedal pulses. No pedal edema. CENTRAL NERVOUS SYSTEM: Alert and oriented x 4, nonfocal exam. SKIN: Normal. Geophysics Scientist is normal. LABORATORY DATA: Head CT was normal. No acute abnormalities. Labs are significant for white count of 6900, hemoglobin of 14.5, hematocrit of 44.5, and platelet count of 289,000. Sodium is 136, slightly low, potassium is 3.8, chloride is 95.4, BUN and creatinine 12 and 1.2. Urine is negative. Drug screen is negative. Valproic acid is less than normal, therapeutic level. ASSESSMENT AND PLAN: 1. Seizure disorder and the patient started on intravenous Keppra and counseled about compliance. The patient is supposed to be on Keppra 1000 mg every 12 hours. It is unclear whether the patient is really compliant or not. 2. Headache, symptomatic treatment with Fioricet. 3. Hyperlipidemia, continue Lipitor 20 mg daily. 4. Coronary artery disease, continue Plavix 75 mg once a day. 5. Peripheral neuropathy, continue gabapentin 300 mg every 8 hours. 6. Hypertension, continue metoprolol 50 mg twice a day, hydrochlorothiazide 25 mg once a day. 7. Gastroesophageal reflux disease, continue ranitidine 300 mg once a day. 8. Deep venous thrombosis prophylaxis, Lovenox 40 mg subcutaneous daily. JOB# [id number] VSZully/NTS
[2018-06-16] MEDS ORDERED: ATIVAN IV PRN (03:21)
[2018-06-16] MEDS: KEPPRA 750 MG in NACL 0.9% 100 ML IV SCH ×2 (04:51→15:12)
[2018-06-16] MEDS: NEURONTIN PO SCH ×3 (05:07→21:21)
[2018-06-16] MEDS: LOPRESSOR PO SCH ×3 (05:07→21:21)
[2018-06-16] MEDS: BENADRYL PO SCH ×3 (05:08→21:22)
[2018-06-16] MEDS: FIORICET PO PRN (05:13)
[2018-06-16 06:39] LABS: Basophils # (Auto) 0.1 K/mm3 (0.0-0.1); Eosinophils # (Auto) 0.3 K/mm3 (0.0-0.4); Eosinophils % (Auto) 5.2 % (0.0-4.3); Hematocrit 43.2 % (30.3-42.9); Hemoglobin 13.7 gm/dl (10.1-14.3); Lymphocytes # (Auto) 2.5 K/mm3 (1.2-5.4); Lymphocytes % (Auto) 43.3 % (13.4-35.0); Mean Corpuscular HGB Conc 32 % (30-34); Mean Corpuscular Volume 81 fl (79-97); Monocytes # (Auto) 0.4 K/mm3 (0.0-0.8); Monocytes % (Auto) 6.9 % (0.0-7.3); Platelet Count 239 K/mm3 (140-440)
[2018-06-16 07:04] LABS: Mean Corpuscular Hemoglobin 26 pg (28-32)
[2018-06-16 07:09] LABS: Alanine Aminotransferase 13 units/L (7-56); Albumin 3.7 g/dL (3.9-5); BUN/Creatinine Ratio 12; Blood Urea Nitrogen 12 mg/dL (7-17); Calcium 9.5 mg/dL (8.4-10.2); Hemolysis Index 14
[2018-06-16] MEDS: ZOFRAN IV PRN (10:14)
[2018-06-16] MEDS: SODIUM CHLORIDE FLUSH SYRINGE 10 ML IV SCH ×2 (10:15→21:26)
[2018-06-16] MEDS: PERCOCET 5/325 PO PRN ×2 (10:37→18:40)
[2018-06-16] MEDS: PEPCID PO SCH ×2 (11:49→21:24)
[2018-06-16] MEDS: IMDUR PO SCH (11:49)
[2018-06-16] MEDS: PLAVIX PO SCH (11:50)
[2018-06-16] MEDS: HCTZ PO SCH (11:51)
[2018-06-16] MEDS: MUCINEX ER PO SCH (21:21)
[2018-06-16] MEDS: KEPPRA PO SCH (21:22)
[2018-06-17] MEDS: BENADRYL PO SCH ×3 (05:45→21:35)
[2018-06-17] MEDS: NEURONTIN PO SCH ×3 (05:45→21:35)
[2018-06-17] MEDS: PLAVIX PO SCH (10:07)
[2018-06-17] MEDS: MUCINEX ER PO SCH ×2 (10:07→21:35)
[2018-06-17] MEDS: IMDUR PO SCH (10:07)
[2018-06-17] MEDS: PERCOCET 5/325 PO PRN (10:07)
[2018-06-17] MEDS: PEPCID PO SCH ×2 (10:08→21:35)
[2018-06-17] MEDS: HCTZ PO SCH (10:09)
[2018-06-17] MEDS: KEPPRA PO SCH ×2 (10:09→21:35)
[2018-06-17] MEDS: LOPRESSOR PO SCH ×2 (10:09→21:36)
[2018-06-17] MEDS: SODIUM CHLORIDE FLUSH SYRINGE 10 ML IV SCH ×2 (10:10→21:36)
--- NOTE | 2018-06-17 18:36 | Progress Note ---
Assessment and Plan - Patient Problems (1) Seizure disorder Current Visit: Yes Status: Acute Plan to address problem: on IV Keppra (2) Headache Current Visit: Yes Status: Acute Qualifiers: Headache type: tension-type Headache chronicity pattern: unspecified pattern Intractability: intractable Qualified Code(s): G44.201 - Tension- type headache, unspecified, intractable Plan to address problem: Fiorcet Patient adamant about getting MRI BRAIN (3) Morbid obesity Current Visit: Yes Status: Chronic Plan to address problem: Counselled (4) DVT prophylaxis Current Visit: No Status: Acute Plan to address problem: On Lovenox Subjective Date of service: 06/16/18 Principal diagnosis: Seizure disorder Interval history: No Seizures, Headache persists Objective - Constitutional Vitals: Vital Signs - 12hr 06/17/18 06/17/18 06/17/18 08:27 09:48 10:07 Temperature 97.7 F Pulse Rate 69 69 Pulse Rate [ 18 L Right Radial] Respiratory 20 20 20 Rate Blood Pressure 132/83 132/83 O2 Sat by Pulse 95 Oximetry 06/17/18 06/17/18 06/17/18 10:09 12:00 17:25 Temperature 97.7 F 97.9 F Pulse Rate 69 57 L 64 Pulse Rate [ Right Radial] Respiratory 20 16 Rate Blood Pressure 90/60 138/85 O2 Sat by Pulse 100 99 Oximetry General appearance: Present: no acute distress, well-nourished - EENT Eyes: PERRL, EOM intact ENT: hearing intact, clear oral mucosa Ears: bilateral: normal - Neck Neck: supple, normal ROM - Respiratory Respiratory effort: normal Respiratory: bilateral: CTA - Breasts Breasts: normal - Cardiovascular Rhythm: regular Heart Sounds: Present: S1 & S2. Absent: gallop, rub Extremities: pulses intact, No edema, normal color, Full ROM - Gastrointestinal General gastrointestinal: Present: soft, non-tender, non-distended, normal bowel sounds - Genitourinary Female genitourinary: normal - Integumentary Integumentary: clear, warm, dry - Musculoskeletal Musculoskeletal: 1, strength equal bilaterally - Neurologic Neurologic: moves all extremities - Psychiatric Psychiatric: memory intact, appropriate mood/affect, intact judgment & insight - Labs CBC & Chem 7: 06/16/18 05:20 06/16/18 05:20
[2018-06-17] MEDS: MORPHINE IV PRN (21:37)
[2018-06-18] MEDS: BENADRYL PO SCH ×3 (06:12→22:15)
[2018-06-18] MEDS: NEURONTIN PO SCH ×3 (06:12→22:15)
[2018-06-18] MEDS: KEPPRA PO SCH ×2 (09:42→22:14)
[2018-06-18] MEDS: HCTZ PO SCH (09:42)
[2018-06-18] MEDS: PLAVIX PO SCH (09:42)
[2018-06-18] MEDS: PEPCID PO SCH ×2 (09:42→22:15)
[2018-06-18] MEDS: MUCINEX ER PO SCH ×2 (09:42→22:15)
[2018-06-18] MEDS: LOPRESSOR PO SCH ×2 (09:49→22:14)
[2018-06-18] MEDS: FIORICET PO PRN (09:49)
[2018-06-18] MEDS: IMDUR PO SCH (09:49)
[2018-06-18] MEDS: SODIUM CHLORIDE FLUSH SYRINGE 10 ML IV SCH ×2 (10:03→22:15)
[2018-06-18] MEDS: PERCOCET 5/325 PO PRN ×2 (12:01→18:29)
--- NOTE | 2018-06-18 18:05 | Progress Note ---
Assessment and Plan - Patient Problems (1) Seizure disorder Current Visit: Yes Status: Acute Plan to address problem: on IV Keppra (2) Headache Current Visit: Yes Status: Acute Qualifiers: Headache type: tension-type Headache chronicity pattern: unspecified pattern Intractability: intractable Qualified Code(s): G44.201 - Tension- type headache, unspecified, intractable Plan to address problem: Fiorcet Patient adamant about getting MRI BRAIN (3) Morbid obesity Current Visit: Yes Status: Chronic Plan to address problem: Counselled (4) DVT prophylaxis Current Visit: No Status: Acute Plan to address problem: On Lovenox Subjective Date of service: 06/16/18 Principal diagnosis: Seizure Disorder, Interval history: No Seizures, Headache persists Objective - Constitutional Vitals: Vital Signs - 12hr 06/18/18 06/18/18 06/18/18 08:00 09:49 12:01 Temperature Pulse Rate Respiratory 20 18 Rate Blood Pressure O2 Sat by Pulse 98 Oximetry 06/18/18 06/18/18 12:22 16:41 Temperature 98.0 F 98.1 F Pulse Rate 69 71 Respiratory 18 18 Rate Blood Pressure 135/83 146/91 O2 Sat by Pulse 98 99 Oximetry General appearance: Present: no acute distress, well-nourished - EENT Eyes: PERRL, EOM intact ENT: hearing intact, clear oral mucosa Ears: bilateral: normal - Neck Neck: supple, normal ROM - Respiratory Respiratory effort: normal Respiratory: bilateral: CTA - Breasts Breasts: normal - Cardiovascular Heart rate: 78 Rhythm: regular Heart Sounds: Present: S1 & S2. Absent: gallop, rub Extremities: pulses intact, No edema, normal color, Full ROM - Gastrointestinal General gastrointestinal: Present: soft, non-tender, non-distended, normal bowel sounds - Genitourinary Female genitourinary: normal - Integumentary Integumentary: clear, warm, dry - Musculoskeletal Musculoskeletal: 1, strength equal bilaterally - Neurologic Neurologic: moves all extremities - Psychiatric Psychiatric: memory intact, appropriate mood/affect, intact judgment & insight - Labs CBC & Chem 7: 06/16/18 05:20 06/16/18 05:20
[2018-06-18] MEDS: MORPHINE IV PRN (22:19)
[2018-06-18] MEDS: ZOFRAN IV PRN (22:19)
[2018-06-19] MEDS: BENADRYL PO SCH (05:04)
[2018-06-19] MEDS: NEURONTIN PO SCH (05:04)
--- NOTE | 2018-06-19 08:50 | Progress Note ---
Assessment and Plan - Patient Problems (1) Seizure disorder Current Visit: Yes Status: Acute Plan to address problem: on IV Keppra (2) Headache Current Visit: Yes Status: Acute Qualifiers: Headache type: tension-type Headache chronicity pattern: unspecified pattern Intractability: intractable Qualified Code(s): G44.201 - Tension- type headache, unspecified, intractable Plan to address problem: Fiorcet Patient adamant about getting MRI BRAIN (3) Morbid obesity Current Visit: Yes Status: Chronic Plan to address problem: Counselled (4) DVT prophylaxis Current Visit: No Status: Acute Plan to address problem: On Lovenox Subjective Date of service: 06/15/18 Principal diagnosis: Seizure Disorder, Interval history: No Seizures, Headache persists Objective - Constitutional Vitals: Vital Signs - 12hr 06/18/18 06/19/18 22:23 05:58 Temperature 97.9 F 97.5 F L Pulse Rate 84 67 Respiratory 19 18 Rate Blood Pressure 148/88 130/78 O2 Sat by Pulse 94 96 Oximetry General appearance: Present: no acute distress, well-nourished - EENT Eyes: PERRL, EOM intact ENT: hearing intact, clear oral mucosa Ears: bilateral: normal - Neck Neck: supple, normal ROM - Respiratory Respiratory effort: normal Respiratory: bilateral: CTA - Breasts Breasts: normal - Cardiovascular Heart rate: 78 Rhythm: regular Heart Sounds: Present: S1 & S2. Absent: gallop, rub Extremities: no ischemia, pulses intact, No edema, normal color, Full ROM - Gastrointestinal General gastrointestinal: Present: soft, non-tender, non-distended, normal bowel sounds - Genitourinary Female genitourinary: normal - Integumentary Integumentary: clear, warm, dry - Musculoskeletal Musculoskeletal: 1, strength equal bilaterally - Neurologic Neurologic: moves all extremities - Psychiatric Psychiatric: memory intact, appropriate mood/affect, intact judgment & insight - Allied health notes Allied health notes reviewed: nursing, case management - Labs CBC & Chem 7: 06/16/18 05:20 06/16/18 05:20
--- NOTE | 2018-06-19 08:52 | Discharge Summary ---
Providers - Providers Date of Admission: 06/15/18 13:59 Date of discharge: 06/19/18 Attending physician: ADRI ROSARIO Primary care physician: CHUCHO RICHTER MD Hospitalization Condition: Stable Exam - Constitutional Vitals: Temp Pulse Resp BP Pulse Ox 97.5 F L 67 18 130/78 96 06/19/18 05:58 06/19/18 05:58 06/19/18 05:58 06/19/18 05:58 06/19/18 05:58 Plan Follow up with: PRIMARY MD NEELAM [Primary Care Provider] - 3-5 Days
[2018-06-19] MEDS: PERCOCET 5/325 PO PRN (10:25)
[2018-06-19] MEDS: HCTZ PO SCH (10:26)
[2018-06-19] MEDS: KEPPRA PO SCH (10:26)
[2018-06-19] MEDS: MUCINEX ER PO SCH (10:26)
[2018-06-19] MEDS: PLAVIX PO SCH (10:26)
[2018-06-19] MEDS: LOPRESSOR PO SCH (10:26)
[2018-06-19] MEDS: PEPCID PO SCH (10:27)
[2018-06-19] MEDS: IMDUR PO SCH (10:27)
--- NOTE | 2018-06-19 11:29 | Magnetic Resonance Report ---
MRI OF THE BRAIN WITHOUT CONTRAST: HISTORY: Persistent headache PROCEDURE: Multiplanar, multisequence MR imaging of the brain without IV contrast was performed. FINDINGS: The brain parenchyma signal intensity and its genao white interface are within normal limits on all sequences. No evidence for acute ischemia, hemorrhage or mass. No chronic infarct or extra-axial fluid collection. The midline structures are central. The basal cisterns are patent. Normal ventricular size. The orbital cavities and sella turcica demonstrate no abnormality. The visualized paranasal sinuses and mastoid air cells are well aerated. IMPRESSION: Unremarkable non-enhanced MRI of the brain.
[2018-06-19 13:29] VITALS: BP 116/77
== END 2018-06-19 16:00 | disposition home or self-care (01) | DRG 101 ==
LOC: ED 11:28 → 3A 13:59
PROVIDERS: ADMIT Internal Medicine; ATTEND Internal Medicine
DX: G40.909 Epilepsy, unspecified, not intractable, without status epilepticus (principal); G35 Multiple sclerosis; I10 Essential (primary) hypertension; G44.209 Tension-type headache, unspecified, not intractable; E66.01 Morbid (severe) obesity due to excess calories; I25.10 Atherosclerotic heart disease of native coronary artery without angina pectoris; E78.5 Hyperlipidemia, unspecified; G62.9 Polyneuropathy, unspecified; K21.9 Gastro-esophageal reflux disease without esophagitis; Z68.37 Body mass index [BMI] 37.0-37.9, adult; Z71.3 Dietary counseling and surveillance; I25.2 Old myocardial infarction; Z79.899 Other long term (current) drug therapy; Z82.49 Family history of ischemic heart disease and other diseases of the circulatory system
CPT/HCPCS: 36415; 70450; 70551; 80048; 80053; 80074; 80164; 80307; 81001; 82962; 84484; 85025; 85610; 85670; 85730; 93005; 93010; 94760; A9270-GY; J1953; J2060; J2270; J2405